=== PATIENT | male | born 1945 | race Caucasian/White ===

== ENCOUNTER 2018-01-11 11:36 | Emergency (ER) | payer MEDICARE, SELFPAY ==
[2018-01-11 11:45] VITALS: BP 146/80; PULSE 86; RESP 80; TEMP 36.2; O2SAT 100
[2018-01-11 12:44] LABS: Add Manual Diff / Slide Review NO; Basophils Percent Auto 0.6 % (0-2); Eosinophils Percent Auto 5.8 % (2-4); Hematocrit 45.8 % (41-53); Hemoglobin 15.9 g/dL (13.5-17.5); Lymphocytes Percent Auto 21.3 % (25-40); Mean Corpuscular HGB Conc 34.7 % (30-36); Mean Corpuscular Hemoglobin 31.1 PG (26-34); Mean Corpuscular Volume 89.6 fL (80-100); Monocytes Percent Auto 8.2 % (3-14); Neutrophils Absolute Auto 4500 /uL (3000-5900); Neutrophils Percent Auto 64.1 % (50-75); Platelet Count 191 X10^3/uL (150-400); Red Blood Cell Count 5.11 X10^6/uL (4.5-5.9); Red Cell Distribution Width 13.4 % (11.6-14.8)
[2018-01-11 12:47] LABS: Alanine Aminotransferase 42 IU/L (21-72); Albumin Globulin Ratio 1.4 (1.0-2.8); Alkaline Phosphatase 51 U/L (38-126); Aspartate Aminotransferase 32 IU/L (17-59); BUN Creatinine Ratio 19.1 (6-22); Bilirubin Total 0.8 mg/dL (0.2-1.3); Blood Urea Nitrogen 21 mg/dL (9-20); Calcium 9.6 mg/dL (8.4-10.2); Carbon Dioxide 33 mmol/L (22-32); Chloride 101 mmol/L (98-107); Estimated Glomerular Filt Rate > 60.0 mL/min (>60); Globulin 2.9 g/dL (1.7-4.1); Glucose 246 mg/dL (80-110); HEMOLYSIS < 15 (0-50); Magnesium 1.8 mg/dL (1.6-2.3); Potassium 3.4 mmol/L (3.4-5.1); Sodium 144 mmol/L (137-145); Total Protein 6.9 g/dL (6.3-8.2)
--- NOTE | 2018-01-11 13:01 | ED_ITS ---
HPI - Arrhythmia/Palpitations <Debbie Hastings PA-C - Last Filed: 01/11/18 21:59> General Chief Complaint: Arrhythmia/Palpitations Stated Complaint: Surgery this morning, concerns after Time Seen by Provider: 01/11/18 12:27 Source: patient Mode of arrival: ambulatory Limitations: no limitations History of Present Illness HPI narrative: This 72-year-old gentleman was having cataract surgery today and had irregular heart rate noted on monitor. They advised him evaluation at the ED and his drove him here. He does have a history of paroxysmal atrial fibrillation previously treated with cardioversion twice. He states that he has been working outside a lot the last few days and thought he was a little dehydrated. He states that he felt the ?race? of atrial fibrillation a little bit yesterday but thought it was due to nerves from surgery. He states he had this for about an hour before he went to bed last night but was not particularly bothersome and fell asleep. He thinks it had stopped when he woke up this morning but may be had some again after using his inhaler. He has not had any chest pain or dyspnea. He has not had any nausea, vomiting, or abdominal pain. No new pain in the extremities. He states this is just a slight flutter in his chest and does think it feels the same as when he was in atrial fibrillation previously Related Data Home Medications Medication Instructions Recorded Confirmed brimonidine [Alphagan P] 1 drp OPH BID #0 07/02/16 Previous Rx's Medication Instructions Recorded potassium chloride [Klor-Con M20] 20 meq PO BID #180 tab 04/29/16 atenolol 100 mg PO Q DAY #30 tab 06/02/16 hydrochlorothiazide 25 mg PO Q DAY #90 tab 06/05/16 losartan 100 mg PO Q DAY #30 tab 06/05/16 hydrochlorothiazide 25 mg PO Q DAY #90 tab 07/02/16 losartan 100 mg PO Q DAY #90 tab 07/02/16 potassium chloride [Klor-Con M20] 20 meq PO BID #180 tab 07/02/16 metoprolol succinate ER 100 mg 100 mg PO QDAY #90 tab 10/04/17 tablet,extended release 24 hr simvastatin 20 mg tablet 20 mg PO HS #90 tab 10/06/17 warfarin 5 mg PO DAILY #10 tab 01/11/18 Review of Systems <Debbie Hastings PA-C - Last Filed: 01/11/18 21:59> Review of Systems All systems reviewed & are unremarkable except as noted in HPI and below Exam <Debbie Hastings PA-C - Last Filed: 01/11/18 21:59> Narrative Exam Narrative: GENERAL APPEARANCE: Patient sitting comfortably, appears well NECK/THYROID: Neck supple, no JVD. LUNGS: Clear to auscultation bilaterally. HEART: Rate and rhythm intermittently regular with some skips and irregular at times. No murmur ABDOMEN: Soft, NT, ND, + BS x 4 quadrants EXTREMITIES: No cyanosis or edema. No calf tenderness NEUROLOGIC: Alert and oriented, normal speech, gait and coordination. Initial Vital Signs Initial Vital Signs: Vital Signs Temperature 97.1 F L 01/11/18 11:45 Pulse Rate 86 01/11/18 11:45 Respiratory Rate 80 H 01/11/18 11:45 Blood Pressure 146/80 H 01/11/18 11:45 Pulse Oximetry 100 01/11/18 11:45 <Sita Judge DO - Last Filed: 01/13/18 07:47> Initial Vital Signs Initial Vital Signs: Vital Signs Temperature 97.1 F L 01/11/18 11:45 Pulse Rate 86 01/11/18 11:45 Respiratory Rate 80 H 01/11/18 11:45 Blood Pressure 146/80 H 01/11/18 11:45 Pulse Oximetry 100 01/11/18 11:45 Course <Debbie Hastings PA-C - Last Filed: 01/11/18 21:59> Additional Information: Patient reported feeling well here in the ED. He has known history of paroxysmal atrial fibrillation. On my observation on the monitor he is in sinus rhythm with PACs, but does appear to be in intermittent AFib on auscultation and also on the rhythm strip sent from ophthalmology office. Discussed risk factors and advised restarting warfarin for now, which he was on in the past, until set up with Cardiology again and determines whether he wants to do cardioversion again or continue chronic anticoagulation. He is agreeable with this plan. We have scheduled follow-up with his PCP tomorrow and I advised him he needs to have INR checked in a few days as well Orders Ordered: ED Orders 01/11/18 12:15 Complete Blood Count AUTO DIFF Stat Comprehensive Metabolic Panel Stat Magnesium Stat Vital Signs - 8 hr 01/11/18 11:45 01/11/18 13:17 Temperature 97.1 F L Pulse Rate 86 74 Respiratory Rate 80 H 18 Blood Pressure 146/80 H Blood Pressure [Right Arm] 124/86 H Pulse Oximetry 100 98 <Sita Judge DO - Last Filed: 01/13/18 07:47> Orders Ordered: ED Orders 01/11/18 12:15 Complete Blood Count AUTO DIFF Stat Comprehensive Metabolic Panel Stat Magnesium Stat Vital Signs - 8 hr 01/11/18 11:45 01/11/18 13:17 Temperature 97.1 F L Pulse Rate 86 74 Respiratory Rate 80 H 18 Blood Pressure 146/80 H Blood Pressure [Right Arm] 124/86 H Pulse Oximetry 100 98 MDM - Arrhythmia/Palpitations <Debbie Hastings PA-C - Last Filed: 01/11/18 21:59> Lab Data Attestation: I reviewed the patient's lab results. Result diagrams: 01/11/18 12:15 01/11/18 12:15 Lab Results 01/11/18 01/11/18 Range/Units 12:15 12:15 WBC 7.0 (4.5-11.0) X10^3/uL RBC 5.11 (4.5-5.9) X10^6/uL Hgb 15.9 (13.5-17.5) g/dL Hct 45.8 (41-53) % MCV 89.6 (80-100) fL MCH 31.1 (26-34) PG MCHC 34.7 (30-36) % RDW 13.4 (11.6-14.8) % Plt Count 191 (150-400) X10^3/uL Neut % (Auto) 64.1 (50-75) % Lymph % (Auto) 21.3 L (25-40) % [place] % (Auto) 8.2 (3-14) % Eos % (Auto) 5.8 H (2-4) % Baso % (Auto) 0.6 (0-2) % Neut # (Auto) 4500 (2897-5334) /uL Sodium 144 (137-145) mmol/L Potassium 3.4 (3.4-5.1) mmol/L Chloride 101 (98-107) mmol/L Carbon Dioxide 33 H (22-32) mmol/L BUN 21 H (9-20) mg/dL Creatinine 1.10 (0.66-1.25) mg/dL Estimated GFR > 60.0 (>60) mL/min BUN/Creatinine Ratio 19.1 (6-22) Glucose 246 H (80-110) mg/dL Calcium 9.6 (8.4-10.2) mg/dL Magnesium 1.8 (1.6-2.3) mg/dL Total Bilirubin 0.8 (0.2-1.3) mg/dL AST 32 (17-59) IU/L ALT 42 (21-72) IU/L Alkaline Phosphatase 51 (38-126) U/L Total Protein 6.9 (6.3-8.2) g/dL Albumin 4.0 (3.5-5.0) g/dL Globulin 2.9 (1.7-4.1) g/dL Albumin/Globulin Ratio 1.4 (1.0-2.8) ECG Data Attestation: I personally reviewed and interpreted this ECG as follows: (Normal sinus rhythm with single PACs, rate 81, normal axis. Previous rhythm strip atrial fibrillation mixed with a few beats of sinus) <Sita Judge, - Last Filed: 01/13/18 07:47> Lab Data Attestation: I reviewed the patient's lab results. Lab Results 01/11/18 01/11/18 Range/Units 12:15 12:15 WBC 7.0 (4.5-11.0) X10^3/uL RBC 5.11 (4.5-5.9) X10^6/uL Hgb 15.9 (13.5-17.5) g/dL Hct 45.8 (41-53) % MCV 89.6 (80-100) fL MCH 31.1 (26-34) PG MCHC 34.7 (30-36) % RDW 13.4 (11.6-14.8) % Plt Count 191 (150-400) X10^3/uL Neut % (Auto) 64.1 (50-75) % Lymph % (Auto) 21.3 L (25-40) % [place] % (Auto) 8.2 (3-14) % Eos % (Auto) 5.8 H (2-4) % Baso % (Auto) 0.6 (0-2) % Neut # (Auto) 4500 (1323-0208) /uL Sodium 144 (137-145) mmol/L Potassium 3.4 (3.4-5.1) mmol/L Chloride 101 (98-107) mmol/L Carbon Dioxide 33 H (22-32) mmol/L BUN 21 H (9-20) mg/dL Creatinine 1.10 (0.66-1.25) mg/dL Estimated GFR > 60.0 (>60) mL/min BUN/Creatinine Ratio 19.1 (6-22) Glucose 246 H (80-110) mg/dL Calcium 9.6 (8.4-10.2) mg/dL Magnesium 1.8 (1.6-2.3) mg/dL Total Bilirubin 0.8 (0.2-1.3) mg/dL AST 32 (17-59) IU/L ALT 42 (21-72) IU/L Alkaline Phosphatase 51 (38-126) U/L Total Protein 6.9 (6.3-8.2) g/dL Albumin 4.0 (3.5-5.0) g/dL Globulin 2.9 (1.7-4.1) g/dL Albumin/Globulin Ratio 1.4 (1.0-2.8) ECG Data Attestation: I personally reviewed and interpreted this ECG as follows: Prior ECG tracings: available for review Interpretation: Sinus rhythm rate [address] changes similar to previous EKGs. 1st degree AV block, LA interval 225, QRS 31, QTC 436 Discharge Plan Departure Patient Disposition: Home Clinical Impression: Paroxysmal atrial fibrillation Discharge Date/Time: 01/11/18 14:27 Interventions: ED Discharge Assessment Last Done: 01/11/18 14:25 Instructions: DI for Atrial Fibrillation, Warfarin Activity Restrictions/Additional Instructions: Please restart your Coumadin (warfarin) at bedtime this evening. We have scheduled you for follow-up with Dr. Mart tomorrow at 1:30 p.m. in the [place] office so that you can discuss cardiology referral. Please also set up an appointment to check your INR level at that time. You should return if you have any acutely worsening symptoms, i.e. feeling faint, like your heart rate too fast, chest pain or shortness breath. Please discontinue your aspirin for now Prescriptions: New warfarin 5 mg tablet 5 mg PO DAILY Qty: 10 RF: 0 No Action potassium chloride [Klor-Con M20] 20 MEQ tablet,ER particles/crystals 20 meq PO BID Qty: 180 RF: 0 atenolol 100 MG tablet 100 mg PO Q DAY Qty: 30 RF: 0 losartan 100 MG tablet 100 mg PO Q DAY Qty: 30 RF: 0 hydrochlorothiazide 25 MG tablet 25 mg PO Q DAY Qty: 90 RF: 0 brimonidine [Alphagan P] 0.1 % drops 1 drp OPHTH BID Qty: 0 RF: 0 potassium chloride [Klor-Con M20] 20 MEQ tablet,ER particles/crystals 20 meq PO BID Qty: 180 RF: 3 hydrochlorothiazide 25 MG tablet 25 mg PO Q DAY Qty: 90 RF: 3 losartan 100 MG tablet 100 mg PO Q DAY Qty: 90 RF: 3 metoprolol succinate 100 mg tablet extended release 24 hr 100 mg PO QDAY Qty: 90 RF: 0 simvastatin 20 mg tablet 20 mg PO HS Qty: 90 RF: 0 Referrals: Jaciel Mart MD [Physician] - <Sita Judge DO - Last Filed: 01/13/18 07:47> Cosign ED Attending Hilarioature Attestation: I was immediately available in the department for consultation. Documentation has been reviewed. I agree with assessment and plan.
[2018-01-11 13:17] VITALS: BP 124/86; PULSE 74; RESP 18; O2SAT 98
== END 2018-01-11 14:27 | disposition home or self-care (01) ==
PROVIDERS: Emergency Provider Internal Medicine
DX: I48.0 Paroxysmal atrial fibrillation (principal)
CPT/HCPCS: 36591; 80053; 83735; 85025; 93005; 93010; 93041; 99283; 99284

== ENCOUNTER → 2019-06-19 11:46 | Outpatient (CLI) | payer MEDICARE, BC, SELFPAY ==
--- NOTE | 2019-06-19 | DI.RAD.S_ITS ---
PROCEDURE: XR SHOULDER LT MIN 2V INDICATIONS: POST SHOULDER ARTHROPLASTY TECHNIQUE: 2 views of the shoulder were acquired. COMPARISON: [facility], CR, XR SHOULDER RT MIN 2V, 06/19/2019, 11:53. [facility], CR, BILATERAL SHOULDER, 03/10/2016, 11:43. CR, XR SHOULDER MIN 2VW LT, 03/25/2015, 10:42. [facility], CR, SHOULDER 1 VIEW LEFT, 02/13/2015, 16:48. FINDINGS: Bones: No fractures or dislocations. No suspicious bony lesions. Visualized ribs appear intact. Left shoulder arthroplasty is present. Arteries intact without hardware fracture or periprosthetic loosening. Soft tissues: No suspicious soft tissue calcifications. IMPRESSION: Left shoulder arthroplasty as above. Dictated by: Rody Orlando M.D. on 06/19/2019 at 15:31 Approved by: Rody Orlando M.D. on 06/19/2019 at 15:31
--- NOTE | 2019-06-19 | DI.RAD.S_ITS ---
PROCEDURE: XR SHOULDER RT MIN 2V INDICATIONS: POST SHOULDER ARTHROPLASTY TECHNIQUE: 2 views of the shoulder were acquired. COMPARISON: CR, BILATERAL SHOULDER, 03/10/2016, 11:43. CR, XR SHOULDER MIN 2VW LT, 03/25/2015, 10:42. [facility], CR, SHOULDER 1 VIEW LEFT, 02/13/2015, 16:48. FINDINGS: Bones: No fractures or dislocations. No suspicious bony lesions. Visualized ribs appear intact. Right shoulder arthroplasty is noted, new compared to prior exam. Hardware is intact. No hardware fracture or periprosthetic loosening. Soft tissues: No suspicious soft tissue calcifications. IMPRESSION: Right shoulder arthroplasty as above. Dictated by: Rody Orlando M.D. on 06/19/2019 at 15:30 Approved by: Rody Orlando M.D. on 06/19/2019 at 15:31
== END ==
PROVIDERS: PCP Internal Medicine; Referring Provider Orthopaedic Surgery; Visit Provider Orthopaedic Surgery
DX: Z47.1 Aftercare following joint replacement surgery (principal); Z96.612 Presence of left artificial shoulder joint; Z96.611 Presence of right artificial shoulder joint
CPT/HCPCS: 73030

== ENCOUNTER → 2021-08-07 09:00 | Outpatient (CLI) | payer MEDICARE, BC, SELFPAY ==
--- NOTE | 2021-08-07 09:03 | DI.ECHO.S_ITS ---
[facility]---------+ [facility] +---------+ : : [address] : : : : [id number] : : : : Phone: [phone]+ Echocardiogram Report + + :Name: BRANDI SPRINGER Study Date: 08/07/2021 Height: 74 in : [id number] ReadingLocation: Weight: 270 lb : : Gender: Male BSA: 2.5 m2 : :: 1945 Age: 76 yrs BP: 122/75 mmHg: :Reason For Study: AFIB : : Performed By: Julio Gomez : :Referring: JOAO EDGE : + + Interpretation Summary The ejection fraction is estimated to be 60-65%. The aortic valve is mildly calcified. There is minimally reduced leaflet mobility. The ascending aorta is mildly enlarged. No significant interval change. Procedure: A two-dimensional transthoracic echocardiogram with color flow and Doppler was performed. The study quality was technically adequate. Comparison is made with the echocardiogram of 12/12/10. The patient was in normal sinus rhythm during the exam. The patient had frequent PVCs during the exam. Left Ventricle: The left ventricle is normal in size. There is mild asymmetric left ventricular hypertrophy. The ejection fraction is estimated to be 60-65%. There are no focal wall motion abnormalities. Right Ventricle: The right ventricle is at the upper limits of normal in size. The right ventricular systolic function is normal. Atria: The left atrium is mildly dilated. Right atrial size is normal. There is no Doppler evidence for an atrial septal defect. Mitral Valve: There is mild mitral annular calcification. There is trace mitral regurgitation. Aortic Valve: The aortic valve is trileaflet. The aortic valve is mildly calcified. There is minimally reduced leaflet mobility. There is no hemodynamically significant valvular aortic stenosis. No aortic regurgitation is present. Tricuspid Valve: The tricuspid valve is normal in structure and function. No tricuspid regurgitation. Pulmonary artery pressures cannot be estimated because of the lack of a measurable TR jet velocity but the IVC suggests a CVP of around 3 mmHg. Pulmonic Valve: The pulmonic valve is not well seen, but is grossly normal. There is trace pulmonic regurgitation. Great Vessels: The aortic root is normal size. The ascending aorta is mildly enlarged. The pulmonary artery is normal size. The IVC is of normal diameter and collapses greater than 50% with a sniff. This suggests a low right atrial pressure of 3 mm Hg. Pericardium/ Pleura There is no pericardial effusion. There is no pleural effusion. MMode/2D Measurements & Calculations LVIDd: 5.1 cm LVOT diam: 2.2 cm LVIDs: 3.1 cm Ao root diam: 3.6 cm FS: 38.9 % asc Aorta Diam: 4.1 cm EPSS: 0.70 cm Ao Arch Diam (Prox Trans): 2.5 cm IVSd: 1.3 cm LVPWd: 1.0 cm LV petty. diameter/BSA (cm/m^2): 2.1 LV sys. diameter/BSA (cm/m^2): 1.3 LA A2 area: 27.4 cm2 RA long axis: 6.2 cm LA A4 area: 26.1 cm2 RA area: 22.9 cm2 LA length (vol): 6.5 cm RA vol: 71.7 ml LA vol: 93.6 ml RA : 29.0 ml/m2 LA vol index: 37.9 ml/m2 IVC diam: 0.98 cm RVD1 (basal): 4.2 cm RVD2 (mid): 4.1 cm TAPSE: 1.8 cm Doppler Measurements & Calculations Ao V2 max: 181.8 cm/sec LVOT Max Axel: 97.4 cm/sec Ao V2 mean: 144.6 cm/sec LV V1 max P.8 mmHg Ao max P.2 mmHg LV V1 VTI: 24.9 cm Ao mean P.8 mmHg SUNNY(I,D): 2.1 cm2 Ao V2 VTI: 45.7 cm SUNNY(V,D): 2.1 cm2 sev ratio: 0.54 SUNNY indexed to BSA (cm^2/m^2): 0.84 MV E max axel: 82.5 cm/sec PA V2 max: 75.1 cm/sec MV A max axel: 115.1 cm/sec PA V2 mean: 63.3 cm/sec MV E/A: 0.72 PA mean P.6 mmHg Med Peak E' Axel: 5.0 cm/sec PA pr(Accel): 13.5 mmHg E/E' med: 16.4 Lat Peak E' Axel: 4.7 cm/sec E/E' lat: 17.7 E/e' average: 17.0 MV dec time: 0.15 sec SV(LVOT): 95.2 ml Reading Physician:01:54 PM
== END ==
PROVIDERS: PCP Internal Medicine; Referring Provider Internal Medicine; Visit Provider Internal Medicine
DX: I48.0 Paroxysmal atrial fibrillation (principal); I77.89 Other specified disorders of arteries and arterioles
CPT/HCPCS: 93306

== ENCOUNTER → 2022-08-08 10:39 | Outpatient (CLI) | payer MEDICARE, BC, SELFPAY ==
--- NOTE | 2022-08-08 10:41 | DI.MRI.S_ITS ---
PROCEDURE: MR ANKLE RT WO CON INDICATIONS: Strain of right Achilles tendon TECHNIQUE: Noncontrast sagittal T1 spin echo and T2 fast spin echo with fat saturation, axial proton density fast spin echo and T2 fast spin echo with fat saturation, coronal T1 spin echo and T2 fast spin echo with fat saturation through the ankle/hindfoot. COMPARISON: None. FINDINGS: Image quality: Excellent. MRI of the right ankle show a full-thickness tear of the Achilles tendon in its mid substance with a approximately 5 cm gap between the tendon fragments. There is also severe tendinopathy involving the Achilles tendon in its midportion of with marked thickening and increased intrasubstance signal. There is a split thickness tear of the peroneus brevis tendon at the lateral malleolus. Remainder of the ankle ligaments and tendons appear intact. There is thickening involving the proximal plantar fascia to 0.6 cm consistent with plantar fasciitis. I do not see active inflammation in this region at the present time. There is subchondral cyst formation involving the calcaneal neck. Marrow signal in the remaining visualized bones appears within normal limits. There is some mild to moderate osteoarthritic type degenerative change involving the 2nd tarsometatarsal joint. No significant joint effusion is seen. No osteochondral defect is identified. Visualized musculature appears within normal limits. IMPRESSION: 1. Full-thickness tear of the Achilles tendon in its midportion with approximately 5 cm of distraction between the tendon fragments. There is also associated severe tendinopathy present involving the Achilles tendon midportion. 2. Split thickness tear of the peroneus brevis tendon at the lateral malleolus. 3. Thickening involving the proximal plantar fascia at 0.6 cm consistent with plantar fasciitis. I do not see acute inflammatory change in this region at the present time. 4. Subchondral cyst involving the calcaneal neck. 5. 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 6. Moderate edematous changes in the subcutaneous tissues of the lower leg likely secondary to inflammation and edema from the Achilles tear. Dictated by: Humza Canas M.D. on 08/10/2022 at 11:36 Approved by: Humza Canas M.D. on 08/10/2022 at 11:49
== END ==
PROVIDERS: PCP Internal Medicine; Referring Provider Podiatrist; Visit Provider Podiatrist
DX: S86.011A Strain of right Achilles tendon, initial encounter (principal); S86.311A Strain of muscle(s) and tendon(s) of peroneal muscle group at lower leg level, right leg, initial encounter; M85.471 Solitary bone cyst, right ankle and foot
CPT/HCPCS: 73721

== ENCOUNTER 2022-12-23 07:18 | Day surgery (SDC) | payer MEDICARE, BC, SELFPAY ==
[2022-12-10 15:58] VITALS: BMI 35.1
[2022-12-23 08:30] VITALS: BMI 35.1
[2022-12-23 08:38] VITALS: BP 160/79; PULSE 66; RESP 17; TEMP 36; O2SAT 98
[2022-12-23] MEDS: LACTATED RINGERS 1,000 ML 42 ML IV (08:58)
--- NOTE | 2022-12-23 09:00 | PM.PREOP ---
Pre-operative Note Interval Note History & Physical reviewed/Exam performed by Physician: Yes Changes to H&P: No
--- NOTE | 2022-12-23 09:00 | PM.OP.1 ---
Operative Date/Time/Diagnoses Date of procedure: 12/23/22 Time of procedure: 09:00 Pre-op diagnosis: Right peroneal tendon tear Post-op diagnosis: other (Right peroneus brevis tendon tear) Procedure & Clinicians Procedure: Right peroneus brevis tendon repair Same procedure as scheduled: Yes Indications: 77-year-old male with pain to the outside of the right ankle and tear of his peroneus brevis tendon. Conservative measures have failed to alleviate the pain and he wished to have surgical intervention at this time. We spoke of the risks and potential complications as well as alternatives to the procedure and expected outcomes. Consent is signed and there are no contraindications to the procedure at this time. Surgeon: Alicia Dawkins Click Yes if Unassisted: Yes Anesthesia Type: General Operative Notes Closure Type: primary Specimen(s): none sent Estimated Blood Loss (mL): 20 Blood products transfused: none Tourniquet time (min): 56 Procedure in detail: The patient was brought into the operating room and placed on the operating table in the supine position. After induction of general anesthesia the tourniquet was placed about the right thigh and as he was on the sand bag, he was then placed in the lateral position, right side up. He was very well padded and secured appropriately. After alcohol prep of the ankle, the recorded anesthesia injectables were delievered to the ankle. The foot and ankle were prepped and draped in the usual aseptic manner. After a check of anesthesia the tourniquet was inflated and an incision was made on the lateral aspect of the right ankle following the curvature of the lateral malleolus ankle gutter. The incision was deepened through subcutaneous tissues being careful to identify and retract all vital neural and vascular structures. All bleeders were cauterized and ligated as necessary. The retinacular tissue and deep fascia was carefully entered as the incision extended distally into the foot along the peroeal tendons a few cm and proximal in the same manner. The peroneal tendons were reviewed and the longus was intact but the brevis had split in two, about 2/3 to 1/3 was the divide. The larger more superficial portion was already trying to come up and over the lateral malleolus. There was some wearing on the anterior lateral malleolus but no spurring. The decision was made to reduce the thickness of the brevis and sacrifice some of the redundant tendon tissue, and then tubularize and repair the tendon to allow for it to be stronger plus fit within the gutter. Portions of both segments of the brevis were sharply excised to thin it, and internal edges curreted to attempt healing. The tear extended about 4 cm. Area was irrigated with copious amounts of normal saline. 3-0 Ethibond was used to tubularize the brevis tendon. This was then reinforced to further tubularize with 3-0 vicryl. This flowed well and smoothly in the groove next to the longus. Deep fascia and retinacular tissue was closed with both of these sutures as well. The tourniquet was deflated and a prompt hyperemic response was seen to the foot and ankle. Subcutaneous closure was performed using 4-0 Vicryl and 3 0-nylon to the skin. A dressing was placed consisting of Adaptic, 4x4s, Kerlix, Valentin wrap, stockinette and his postsurgical boot. The patient was transferred the PACU with vital signs stable. Complications: none Post-operative Condition: stable Disposition: PACU Plan for aftercare: Following a period of postoperative monitoring, the patient will be discharged to home on written and oral postoperative instructions including keeping the dressing dry and intact, no weight to the surgical foot, icing behind the knee and elevating the foot when seated home. DVT prevention techniques have been reviewed. For the 1st postoperative visit the dressing will be changed and close to the 3rd postoperative week we will likely remove the sutures.
[2022-12-23] MEDS: CLINDAMYCIN 600 MG/50 ML PIGGYBACK 50 MG IV (09:35)
--- NOTE | 2022-12-23 09:43 | SUR.OPER ---
Lateral on a carrizales bag, head on pillow, gel axillary roll in place, bottom leg bent with gel pad under knee to foot, upper leg straight and supported with pillows. Upper arm supported by pillows and secured over bottom arm to padded arm board. Safety belt at hip, tape over blanket lower legs.
[2022-12-23] MEDS: BUPIVACAINE 0.5% (PF) 30 ML VIAL INJ (10:42)
[2022-12-23 11:02] VITALS: BP 135/79; PULSE 78; RESP 18; TEMP 36.8; O2SAT 100
[2022-12-23 11:07] VITALS: BP 135/80; PULSE 76; RESP 14; O2SAT 98
[2022-12-23 11:12] VITALS: BP 131/84; PULSE 82; RESP 18; O2SAT 100
[2022-12-23 11:25] VITALS: BP 135/75; PULSE 82; RESP 13; TEMP 36.6; O2SAT 99
[2022-12-23 11:44] VITALS: BP 131/72; PULSE 75; RESP 16; TEMP 36.4; O2SAT 98
== END 2022-12-23 11:58 | disposition home or self-care (01) ==
PROVIDERS: PCP Internal Medicine; Referring Provider Podiatrist; Visit Provider Podiatrist
PROC: (CPT 27650; principal; 2022-12-23 09:30)
DX: S86.311D Strain of muscle(s) and tendon(s) of peroneal muscle group at lower leg level, right leg, subsequent encounter (principal)
CPT/HCPCS: 27675; J3010

== ENCOUNTER → 2023-03-26 09:58 | Outpatient (CLI) | payer MEDICARE, BC, SELFPAY ==
[2023-03-26 10:49] LABS: Add Manual Diff / Slide Review NO; Basophils Absolute Auto 0 /uL (0-100); Basophils Percent Auto 0.6 % (0-2); Eosinophils Absolute Auto 300 /uL (0-450); Eosinophils Percent Auto 3.7 % (2-4); Lymphocytes Absolute Auto 1200 /uL (1100-4500); Lymphocytes Percent Auto 15.9 % (25-40); Mean Corpuscular HGB Conc 34.9 % (30-36); Mean Corpuscular Hemoglobin 31.6 PG (26-34); Mean Corpuscular Volume 90.7 fL (80-100); Monocytes Absolute Auto 700 /uL (0-900); Neutrophils Absolute Auto 5400 /uL (1500-7000); Neutrophils Percent Auto 70.8 % (50-75); Platelet Count 191 X10^3/uL (150-400); Red Blood Cell Count 4.74 X10^6/uL (4.5-5.9); Red Cell Distribution Width 14.1 % (11.6-14.8); White Blood Cell Count 7.7 X10^3/uL (4.5-11.0)
[2023-03-26 11:23] LABS: Alanine Aminotransferase 24 IU/L (<50); Albumin 3.6 g/dL (3.5-5.0); Albumin Globulin Ratio 1.3 (1.0-2.8); Alkaline Phosphatase 48 U/L (38-126); Aspartate Aminotransferase 25 IU/L (17-59); Blood Urea Nitrogen 27 mg/dL (9-20); Calcium 10.2 mg/dL (8.4-10.2); Carbon Dioxide 34 mmol/L (22-32); Chloride 99 mmol/L (98-107); Estimated Glomerular Filt Rate 54 mL/min (>60); Globulin 2.8 g/dL (1.7-4.1); Glucose 142 mg/dL (80-110); HEMOLYSIS < 15 (0-50); Hemoglobin A1C% w Est Avg Glu 7.2 % (4.0-6.0); Potassium 3.5 mmol/L (3.4-5.1); Sodium 139 mmol/L (137-145); Total Protein 6.4 g/dL (6.3-8.2)
[2023-03-26 11:51] LABS: TSH w/ Reflex to FT4 1.23 uIU/mL (0.47-4.68)
== END ==
PROVIDERS: PCP Family Medicine; Referring Provider Family Medicine; Visit Provider Family Medicine
DX: I10 Essential (primary) hypertension (principal); E11.9 Type 2 diabetes mellitus without complications; E78.2 Mixed hyperlipidemia; D64.9 Anemia, unspecified
CPT/HCPCS: 36415; 80053; 83036; 84443; 85025

== ENCOUNTER → 2023-09-07 08:49 | Outpatient (CLI) | payer MEDICARE, BC, SELFPAY ==
[2023-09-07 10:06] LABS: Hemoglobin A1C% w Est Avg Glu 6.7 % (4.0-6.0)
[2023-09-07 10:17] LABS: HEMOLYSIS < 15 (0-50)
[2023-09-07 10:31] LABS: Alanine Aminotransferase 27 IU/L (<50); Albumin 3.9 g/dL (3.5-5.0); Albumin Globulin Ratio 1.6 (1.0-2.8); Alkaline Phosphatase 54 U/L (38-126); Aspartate Aminotransferase 28 IU/L (17-59); Bilirubin Total 0.8 mg/dL (0.2-1.3); Blood Urea Nitrogen 43 mg/dL (9-20); Calcium 9.8 mg/dL (8.4-10.2); Carbon Dioxide 29 mmol/L (22-32); Chloride 108 mmol/L (98-107); Cholesterol 155 mg/dL (140-199); Estimated Glomerular Filt Rate 27 mL/min (>60); Globulin 2.5 g/dL (1.7-4.1); Glucose 99 mg/dL (80-110); HDL Cholesterol 52 mg/dL (40-60); LDL Cholesterol Calculated 85 mg/dL (<100); Potassium 3.9 mmol/L (3.4-5.1); Sodium 142 mmol/L (137-145); Total Protein 6.4 g/dL (6.3-8.2); Triglycerides 88 mg/dL (35-150)
[2023-09-07 11:10] LABS: Prostate Specific Antigen Scrn 0.781 ng/mL (0.1-4.0)
== END ==
PROVIDERS: PCP Family Medicine; Referring Provider Family Medicine; Visit Provider Family Medicine
DX: Z12.5 Encounter for screening for malignant neoplasm of prostate (principal); E11.9 Type 2 diabetes mellitus without complications; E78.2 Mixed hyperlipidemia; I10 Essential (primary) hypertension
CPT/HCPCS: 36415; 80053; 80061; 83036; G0103

== ENCOUNTER → 2024-01-28 12:33 | Outpatient (CLI) | payer MEDICARE, BC, SELFPAY ==
[2024-01-28 13:46] LABS: Hemoglobin A1C% w Est Avg Glu 7.2 % (4.0-6.0)
[2024-01-28 14:07] LABS: Alanine Aminotransferase 26 IU/L (<50); Albumin 2.8 g/dL (3.5-5.0); Albumin Globulin Ratio 0.9 (1.0-2.8); Alkaline Phosphatase 85 U/L (38-126); Aspartate Aminotransferase 21 IU/L (17-59); BUN Creatinine Ratio 15.3 (6-22); Bilirubin Total 0.6 mg/dL (0.2-1.3); Blood Urea Nitrogen 33 mg/dL (9-20); Calcium 9.8 mg/dL (8.4-10.2); Carbon Dioxide 28 mmol/L (22-32); Chloride 101 mmol/L (98-107); Estimated Glomerular Filt Rate 31 mL/min (>60); Globulin 3.2 g/dL (1.7-4.1); Glucose 218 mg/dL (80-110); HEMOLYSIS < 15 (0-50); Potassium 4.1 mmol/L (3.4-5.1); Sodium 134 mmol/L (137-145)
[2024-01-28 17:04] LABS: Creatinine Urine Random 42.06 mg/dL
[2024-01-28 17:11] LABS: Microalbumin Urine Random 2.9 mg/dL (0-1.6)
== END ==
PROVIDERS: PCP Family Medicine; Referring Provider Family Medicine; Visit Provider Family Medicine
DX: E11.9 Type 2 diabetes mellitus without complications (principal); I10 Essential (primary) hypertension; E78.2 Mixed hyperlipidemia
CPT/HCPCS: 36415; 80053; 82043; 82570; 83036

== ENCOUNTER → 2024-06-22 07:54 | Outpatient (CLI) | payer MEDICARE, BC, SELFPAY ==
--- NOTE | 2024-06-22 07:56 | DI.ECHO.S_ITS ---
[facility]---------+ [facility] : : [id number] : [place] : : [id number] : : Phone: [phone] Echocardiogram Report + + :Name: BRANDI SPRINGER Study Date: 06/22/2024 Height: 74 in : :[facility] ReadingLocation: Weight: 240 lb : : Gender: Male BSA: 2.3 m2 : :: 1945 Age: 79 yrs BP: 137/82 mmHg: :Reason For Study: EVAL FOR HEART MURMUR : :Ordering Physician: HORACIO, : :JOSE Performed By: Flavio Bower : :Referring: JOSE LEONARD : + + Interpretation Summary Mild aortic valve stenosis with peak velocity of 2.8m/s, MG of 17.6mmHg, DVI of 0.34, SUNNY of 1.5cm2. Normal biventricular size and systolic function. LVEF is 60-65% Biatrial enlargement is noted. Other findings as below. When compared to TTE dated 08/07/21, aortic valve is now mildly stenotic. Repeat TTE in 1 year is recommended. Procedure: A two-dimensional transthoracic echocardiogram with color flow and Doppler was performed. The study quality was technically good. Comparison is made with the echocardiogram of 08/07/2021. The patient was in normal sinus rhythm during the exam. Left Ventricle: The left ventricle is normal in size. There is mild-moderate concentric left ventricular hypertrophy. There is no ventricular septal defect visualized. The ejection fraction is estimated to be 60-65%. There are no focal wall motion abnormalities. Diastolic parameters suggest probable elevated filling pressures. Right Ventricle: The right ventricle is normal in size, thickness and function. The right ventricular systolic function is normal. Atria: The left atrium is mildly dilated. The right atrium is mildly dilated. There is no Doppler evidence for an interatrial shunt. Mitral Valve: There is moderate mitral annular calcification. The mitral valve leaflets appear mildly thickened, but open well. The mitral valve leaflets are mildly calcified. There is mild mitral regurgitation. Aortic Valve: The aortic valve is trileaflet. The aortic valve is moderately calcified. There is mild aortic stenosis. The peak aortic velocity is 2.83 m/sec. The aortic valve mean gradient is 17.6 mmHg. No aortic regurgitation is present. Tricuspid Valve: The tricuspid valve leaflets are thin and pliable. There is mild tricuspid regurgitation. The right ventricular systolic pressure is estimated to be at least 49 mmHg based on an estimated right atrial pressure of 3 mm Hg. Pulmonic Valve: The pulmonic valve leaflets are thin and pliable; valve motion is normal. There is trace pulmonic regurgitation. Great Vessels: The aortic root is normal size. The dimensions of the ascending aorta are normal. The pulmonary artery is normal size. The IVC is of normal diameter and collapses greater than 50% with a sniff. This suggests a low right atrial pressure of 3 mm Hg. Pericardium/ Pleura There is no pericardial effusion. There is no pleural effusion. MMode/2D Measurements & Calculations LVIDd: 5.0 cm LVOT diam: 2.4 cm LVIDs: 3.3 cm Ao root diam: 3.5 cm FS: 35.0 % asc Aorta Diam: 3.6 cm EPSS: 0.61 cm IVSd: 0.90 cm LVPWd: 1.00 cm LV petty. diameter/BSA (cm/m^2): 2.1 LV sys. diameter/BSA (cm/m^2): 1.4 LA A2 area: 25.9 cm2 RA long axis: 5.7 cm LA A4 area: 25.4 cm2 RA area: 19.4 cm2 LA length (vol): 6.3 cm RA vol: 56.3 ml LA vol: 88.0 ml RA : 24.0 ml/m2 LA vol index: 37.5 ml/m2 IVC diam: 1.7 cm RVD1 (basal): 4.5 cm RVD2 (mid): 3.4 cm TAPSE: 2.5 cm Doppler Measurements & Calculations Ao V2 max: 282.7 cm/sec LVOT Max Axel: 95.4 cm/sec Ao V2 mean: 197.7 cm/sec LV V1 max P.6 mmHg Ao max P.0 mmHg LV V1 VTI: 23.4 cm Ao mean P.6 mmHg SUNNY(I,D): 1.5 cm2 Ao V2 VTI: 69.2 cm SUNNY(V,D): 1.5 cm2 sev ratio: 0.34 SUNNY indexed to BSA (cm^2/m^2): 0.63 MV E max axel: 110.1 cm/sec TR max axel: 338.3 cm/sec MV A max axel: 101.7 cm/sec TR max P.8 mmHg MV E/A: 1.1 PA V2 max: 62.9 cm/sec Med Peak E' Axel: 8.6 cm/sec PA V2 mean: 44.2 cm/sec E/E' med: 12.8 PA mean P.89 mmHg Lat Peak E' Axel: 5.6 cm/sec PA pr(Accel): 29.3 mmHg E/E' lat: 19.6 E/e' average: 16.2 MV dec time: 0.12 sec SV(LVOT): 102.2 ml Reading Physician:02:[id number] PM
== END ==
LOC: ECHO 07:55
PROVIDERS: PCP Family Medicine; Referring Provider Family Medicine; Visit Provider Family Medicine
DX: I08.3 Combined rheumatic disorders of mitral, aortic and tricuspid valves (principal); R01.1 Cardiac murmur, unspecified
CPT/HCPCS: 93306

== ENCOUNTER → 2024-06-28 11:52 | Outpatient (CLI) | payer MEDICARE, BC, SELFPAY ==
[2024-06-28 13:22] LABS: Alanine Aminotransferase 20 IU/L (<50); Albumin 3.8 g/dL (3.5-5.0); Albumin Globulin Ratio 1.7 (1.0-2.8); Alkaline Phosphatase 50 U/L (38-126); Aspartate Aminotransferase 25 IU/L (17-59); BUN Creatinine Ratio 14.4 (6-22); Bilirubin Total 0.7 mg/dL (0.2-1.3); Blood Urea Nitrogen 23 mg/dL (9-20); Calcium 9.8 mg/dL (8.4-10.2); Carbon Dioxide 35 mmol/L (22-32); Chloride 102 mmol/L (98-107); Estimated Glomerular Filt Rate 44 mL/min (>60); Globulin 2.3 g/dL (1.7-4.1); Glucose 98 mg/dL (80-110); HEMOLYSIS < 15 (0-50); Sodium 140 mmol/L (137-145); Total Protein 6.1 g/dL (6.3-8.2)
== END ==
PROVIDERS: PCP Family Medicine; Referring Provider Family Medicine; Visit Provider Family Medicine
DX: N18.9 Chronic kidney disease, unspecified (principal); E11.29 Type 2 diabetes mellitus with other diabetic kidney complication
CPT/HCPCS: 36415; 80053

== ENCOUNTER → 2024-08-16 11:18 | Outpatient (CLI) | payer MEDICARE, BC, SELFPAY ==
--- NOTE | 2024-08-16 11:19 | DI.RAD.S_ITS ---
PROCEDURE: XR CHEST 2V INDICATIONS: SOB TECHNIQUE: 2 views of the chest were acquired. COMPARISON: None. FINDINGS: Surgical changes and devices: None. Lungs and pleura: Moderate right hemidiaphragmatic elevation noted in addition to linear right basilar atelectasis/scarring. Lungs are otherwise clear. No pleural effusions or pneumothorax. Mediastinum: Mediastinal contours are normal. Heart size is normal. Atherosclerotic vascular calcifications are noted. 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 No suspicious bony abnormalities. Soft tissues appear unremarkable. IMPRESSION: No acute cardiopulmonary abnormality is seen. Right hemidiaphragmatic elevation and right basilar atelectasis/scarring noted. Dictated by: Wang Baer M.D. on 08/16/2024 at 14:49 Approved by: Wang Baer M.D. on 08/16/2024 at 14:50
== END ==
PROVIDERS: PCP Family Medicine; Referring Provider Internal Medicine Critical Care Medicine; Visit Provider Internal Medicine Critical Care Medicine
DX: R06.00 Dyspnea, unspecified (principal); R06.89 Other abnormalities of breathing; J45.909 Unspecified asthma, uncomplicated; Z87.891 Personal history of nicotine dependence; R94.2 Abnormal results of pulmonary function studies; J98.11 Atelectasis
CPT/HCPCS: 71046; 94060; 94726; 94729

== ENCOUNTER → 2024-11-24 11:43 | Outpatient (CLI) | payer MEDICARE, BC, SELFPAY ==
[2024-11-24 12:55] LABS: Alanine Aminotransferase 20 IU/L (<50); Albumin 3.5 g/dL (3.5-5.0); Albumin Globulin Ratio 1.6 (1.0-2.8); Alkaline Phosphatase 51 U/L (38-126); Blood Urea Nitrogen 27 mg/dL (9-20); Calcium 9.5 mg/dL (8.4-10.2); Carbon Dioxide 39 mmol/L (22-32); Chloride 98 mmol/L (98-107); Estimated Glomerular Filt Rate 46 mL/min (>60); Globulin 2.2 g/dL (1.7-4.1); Glucose 116 mg/dL (70-99); HEMOLYSIS < 15 (0-50); Potassium 3.8 mmol/L (3.4-5.1); Sodium 138 mmol/L (137-145); Total Protein 5.7 g/dL (6.3-8.2)
== END ==
PROVIDERS: PCP Family Medicine; Referring Provider Family Medicine; Visit Provider Family Medicine
DX: N18.4 Chronic kidney disease, stage 4 (severe) (principal); Z92.29 Personal history of other drug therapy; I10 Essential (primary) hypertension
CPT/HCPCS: 36415; 80053